=== PATIENT | female | born 1975 | race Hispanic/Latino ===

== ENCOUNTER → 2016-12-17 | Day surgery (SDC) | payer OTHER ==
--- NOTE | 2016-12-13 16:29 | History & Physical Pre-Op ---
General Information and HPI History of Present Illness: Doris is a 41-year-old female with a long-standing and worsening complaint of left heel pain. The patient has undergone an extended course of conservative care, including shoe gear and activity modification, rest, immobilization and courses of NSAIDs. None of this is yielded her any significant relief. The patient presents today for preoperative surgical consultation. Allergies/Medications Allergies: Uncoded Allergies: LAUNDRY SOAP (Severe, ANAPHYLAXIS... ONLY USES PUREX 12/13/16) Home Med list Doxepin HCl 10 MG CAPSULE 1 CAP PO QPM SLEEP (Reported) Esomeprazole (Nexium) 40 MG CAPSULE.DR 1 CAP PO DAILY GERD (Reported) Past History Medical History Gastrointestinal: GERD Surgical History Pertinent Surgical History: non-contributory Exam & Diagnostic Data Last 24 Hrs of Vital Signs/I&O Intake & Output 12/13 1600 05/05 0800 05/05 0000 Intake Total Output Total Balance Patient 158 lb Weight Physical Exam: Lungs clear bilaterally. Heart sounds rate and rhythm regular. Lower extremity physical exam demonstrates intact pedal pulses bilaterally. Both dorsalis pedis and posterior tibial arteries are palpable bilaterally. Patient without any sensory motor deficits. Deep tendon reflexes grossly intact. Patient noted to have same and pain with palpation to the plantar medial aspect the left heel. Negative Tinel sign noted with percussion of the posterior tibial nerve. Ankle range of motion noted to be diminished, especially in dorsiflexion. Assessment/Plan Assessment/Plan: Plantar fasciitis and gastrocnemius equinus left a lengthy discussion reviewing both surgical and conservative options was held the patient at bedside and the patient elects to go forward with surgery despite the risks. As Ranked By This Provider Problem List: 1. Plantar fascial fibromatosis Attending MD Review Statement Attending Statement Attending MD Statement: examined this patient
[~2016-12-17] VITALS: Ht 160 cm; Wt 71.7 kg
[~2016-12-17] MED LIST: DOXEPIN HCL10 MG PO; NEXIUM40 M1 PO
--- NOTE | 2016-12-19 17:13 | Operative Report ---
Operative/Inv Procedure Report Surgery Date: 12/17/16 Name of Procedure: 1 gastrocnemius recession left 2 plantar fasciotomy left 3 plantar fasciectomy left Pre-Operative Diagnosis: 1 gastrocnemius equinus left 2 chronic plantar fasciosis left Post-Operative Diagnosis: The same Estimated Blood Loss: scant Surgeon/Access Developer: CITLALI TREJO DPM Anesthesia: moderate sedation, block Operative/Procedure Note Note: After obtaining informed consent the patient was brought to the operating room and placed on the operating table in the supine position. The patient isn't securely fastened to the operating table utilizing safety belt. After administration of IV sedation, 10 mL of 0.5% Marcaine plain was obtained about the patient's left ankle. A well-padded calf tourniquet was placed about the patient's left upper calf. The left lower extremity was scrubbed prepped and draped in usual aseptic manner. 2 g of Ancef were delivered intravenously times one dose. The left lower extremity was then elevated to exsanguinate the limb, which point the calf tourniquet was inflated 250 mmHg. Attention directed distal medial left leg, where a linear incision was made 2 finger best distal to the medial have a gastrocnemius muscle. It 6 was then carried down to the medial margin of the gastroc fascia where an interval was developed between the fascia and the peritenon. The sural nerve was identified protected. A gastrocnemius recession was then performed. The deep tissues reprepped with 4-0 Vicryl and the skin edges reprepped with 4-0 nylon. Tension was then directed to the distal foot, where a grid pattern was marked out overlying the origin of the medial slip of the plantar fascia. Portals were developed with a sterile 62 K wire and the fascia was then ablated with 4 W of energy along this marked out pattern. The dissection was then carried down to the medial margin of the plantar fascia, which was freed of its origin on the medial tubercle calcaneal tuberosity. The skin edges were then reapproximated 4-0 nylon. The incisions were dressed with Xeroform 4 x 4's Kerlix and an Alvin wrap. The patient is noted tolerate both procedure and anesthesia well and the patient was transported from the operating room to recovery by sent stable best assess intact all digits left foot.
== END ==
LOC: STS 00:52
DX: M21.6X2 Other acquired deformities of left foot (principal); M72.2 Plantar fascial fibromatosis; K21.9 Gastro-esophageal reflux disease without esophagitis
CPT/HCPCS: 81025; J0131; J0690; J2001; J2250